=== PATIENT | male | born 1980 | race Two or more races ===

== ENCOUNTER 2020-10-19 14:12 | Outpatient (REF) | payer SELFPAY | END 2020-10-19 14:13 | disposition home or self-care (01) | LOC: HO.LAB 14:12 | PROVIDERS: Visit Provider Internal Medicine | DX: Z20.828 Contact with and (suspected) exposure to other viral communicable diseases (principal) | CPT/HCPCS: C9803; U0003 ==

== ENCOUNTER 2024-11-15 20:34 | Emergency (ER) | payer OTHER, SELFPAY ==
[2024-11-15 20:39] VITALS: BP 151/84; PULSE 98; RESP 16; TEMP 36; O2SAT 95; BMI 40.8
--- NOTE | 2024-11-15 21:17 | ED_ITS ---
HPI - Back Pain/Injury General Chief Complaint: Back Pain/Injury Stated Complaint: back pain/leg tingling Time Seen by Provider: 11/15/24 21:17 Source: patient Mode of arrival: ambulatory Limitations: no limitations History of Present Illness ED Provider: HPI Narrative: Patient has no prior low back problems comes here with pain in the left lower lumbar area radiating to the left leg last 2 weeks no injury no spinal tenderness patient was not noticed numbness in the left leg at the area of the knee no motor weakness Related Data Previous Rx's ?Medication ?Instructions ?Recorded cyclobenzaprine 10 mg tablet 10 mg PO TID PRN muscle spasm #20 11/15/24 tabs oxycodone 5 mg tablet 5 mg PO Q6H PRN pain #30 tabs 11/15/24 Allergies Allergy/AdvReac Type Severity Reaction Status Date / Time No Known Allergies Allergy Verified 11/15/24 20:42 Review of Systems Review of Systems: Yes all other systems are reviewed and are negative [facility] Social History Social History Advance Directives: No Advance Directives Information Provided: Yes Do you have a plan to hurt others: No Plan Physical Exam Vital Signs: Vital Signs: Last Vital Signs Temp 97.9 F 11/15/24 22:02 Pulse 92 11/15/24 22:02 Resp 18 11/15/24 22:02 BP 141/82 H 11/15/24 22:02 Pulse Ox 97 11/15/24 22:02 O2 Del Method Room Air 11/15/24 22:02 BMI result Body Mass Index 40.8 Appearance: Alert. Oriented X3. No acute distress. Neck: Normal inspection. Neck supple. CVS: Normal heart rate and rhythm. Pulses normal. Respiratory: No respiratory distress. Equal air entry bilateral, no wheezing/rales/rhonchi Abdomen: Soft and nontender. Bowel sounds are present, no mass palpable, no CVA tenderness back: No midline left sciatic notch tenderness Pace sign positive for piriformis syndrome Skin: Skin warm and dry. Normal skin color. Normal skin turgor. Extremities: No lower extremity edema. No calf tenderness SLR test negative on the left side Neuro: Oriented X 3. No motor deficit. No sensory deficit. Medications Administered Discontinued Medications Generic Name Dose Route Start Last Admin Trade Name Freq PRN Reason Stop Dose Admin Cyclobenzaprine HCl 10 mg 11/15/24 21:24 11/15/24 21:49 Cyclobenzaprine Hcl 10 Mg Tablet PO 11/15/24 21:25 10 mg ONCE ONE Administration Morphine Sulfate 15 mg 11/15/24 21:24 11/15/24 21:50 Morphine Sulfate Immed Release 15 Mg Tablet PO 11/15/24 21:25 15 mg ONCE ONE Administration Medical Decision Making Medical Decision Making MDM Narrative: Patient clinically with the piriformis syndrome Differential Diagnosis Differential Diagnoses: The differential diagnosis associated with the presentation includes Sciatic your/piriformis syndrome/low back strain Discharge Plan Discharge Clinical Impression: Piriformis syndrome of left side Patient Disposition: Home, Self-Care Instructions: Piriformis Syndrome (ED) Additional Instructions: Take pain medication muscle relaxant as prescribed Rest do piriformis syndrome exercises as advised Follow with PCP or pain clinic if pain continues for further management Prescriptions: New oxycodone 5 mg tablet 5 mg PO Q6H PRN (Reason: pain) Qty: 30 0RF Rx Instructions: Partial Fill upon patient request. cyclobenzaprine 10 mg tablet 10 mg PO TID PRN (Reason: muscle spasm) Qty: 20 0RF Stand Alone Forms: Work/School Release Interventions: ED Discharge Assessment Last Done: 11/15/24 22:02 Discharge Date/Time: 11/15/24 22:02 Print Language: [place]
[2024-11-15] MEDS: Cyclobenzaprine HCl 10 MG TABLET PO (21:49)
[2024-11-15] MEDS: Morphine Sulfate Immed Release 15 MG TABLET PO (21:50)
[2024-11-15 21:57] VITALS: BP 141/82; PULSE 92; RESP 18; TEMP 36.6; O2SAT 97
[2024-11-15 22:02] VITALS: BP 141/82; PULSE 92; RESP 18; TEMP 36.6; O2SAT 97
== END 2024-11-15 22:02 | disposition home or self-care (01) ==
PROVIDERS: Emergency Provider Internal Medicine
DX: G57.02 Lesion of sciatic nerve, left lower limb (principal); M54.50 Low back pain, unspecified; M79.605 Pain in left leg
CPT/HCPCS: 99283; 99284

== ENCOUNTER 2024-11-23 06:56 | Emergency (ER) | payer OTHER, SELFPAY ==
--- NOTE | ~2024-11-23 | XR_ITS ---
EXAMINATION: XR LUMBOSACRAL SPINE CLINICAL INFORMATION: lower back pain COMPARISON: None available. TECHNIQUE: Three views of the lumbosacral spine. FINDINGS: Marginal osteophyte formation and syndesmophyte formation from T11-12 through L1-2. Mild endplate sclerosis throughout the vertebral bodies. No acute cortical disruption. No malalignment. No lytic or blastic lesions. XR/XR lumbar spine 2-3V IMPRESSION: Multilevel thoracolumbar spondylosis. Electronically signed by: Farhad Burrell MD 11/23/2024 08:17 AM [facility]
[2024-11-23 07:12] VITALS: BP 148/91; PULSE 89; RESP 16; TEMP 37.1; O2SAT 98; BMI 39.9
--- NOTE | 2024-11-23 10:32 | ED.BACK ---
HPI - Back Pain/Injury General Chief Complaint: Back Pain/Injury Stated Complaint: Left back and knee pain Time Seen by Provider: 11/23/24 09:54 Source: patient, RN notes reviewed and old records reviewed Mode of arrival: ambulatory History of Present Illness ED Provider: Lisa Wright PA-C [facility] Narrative: 44-year-old male with no significant past medical history presenting to the ED complaining of acute on chronic left-sided low back pain radiating down LLE x few weeks. Denies known injury/trauma or fall. States did bend down in his basement and unclear if that cause symptoms. Reports associated numbness/tingling down left lower extremity. Denies incontinence, retention, hematuria, dysuria, abdominal pain. Patient was evaluated in our ED on 11/15 for similar symptoms, prescribed oxycodone and cyclobenzaprine with some relief. Related Data Previous Rx's ?Medication ?Instructions ?Recorded cyclobenzaprine 10 mg tablet 10 mg PO TID PRN muscle spasm #20 11/15/24 tabs oxycodone 5 mg tablet 5 mg PO Q6H PRN pain #30 tabs 11/15/24 acetaminophen 500 mg tablet 500 mg PO Q6H PRN fever or pain 11/23/24 (Tylenol Extra Strength) #14 tabs cyclobenzaprine 10 mg tablet 10 mg PO TID PRN muscle spasm #14 11/23/24 tabs lidocaine 5 % topical patch 1 patch topical DAILY PRN pain #30 11/23/24 (Lidoderm) ea naproxen 500 mg tablet 500 mg PO BID PRN pain 10 days #20 11/23/24 tabs prednisone 20 mg tablet 40 mg (2 x 20 mg) PO DAILY 5 days 11/23/24 #10 tabs Allergies Allergy/AdvReac Type Severity Reaction Status Date / Time No Known Allergies Allergy Verified 11/23/24 07:14 Review of Systems Review of Systems: Yes all other systems are reviewed and are negative Constitutional: Constitutional: Reports as per [facility] Past Medical History Attestation statement: The following information was validated with the patient. Source: old records reviewed Social History Social History Advance Directives: No Advance Directives Information Provided: Yes Do you have a plan to hurt others: No Plan Physical Exam Vital Signs: Vital Signs: Last Vital Signs Temp 98.7 F 11/23/24 07:12 Pulse 89 11/23/24 07:12 Resp 16 11/23/24 07:12 BP 148/91 H 11/23/24 07:12 Pulse Ox 98 11/23/24 07:12 O2 Del Method Room Air 11/23/24 07:12 BMI result Body Mass Index 39.9 Const: General: cooperative, healthy appearing and no acute distress Orientation/consciousness: patient oriented x3 Limitations: no limitations HEENT: Head: Yes normal to inspection and Yes atraumatic Ears: hearing grossly normal bilaterally General nose exam: Normal external nose present Face and sinus: Yes normal facial exam Eyes: General: appearance normal, both eyes and all related structures EOM: EOMs intact bilaterally Neck: Neck: Yes normal visual inspection and Yes no meningeal signs Resp: Effort & Inspection: normal respiratory effort and no respiratory distress Cardio: Rate: regular rate GI: Inspection: Yes normal to inspection Palpation (GI): Soft to palpation, nontender, no guarding and not rigid : General: Yes no CVA tenderness Back/Spine/Pelvis: Other: No midline cervical/thoracic/lumbar spinous tenderness/step-off or deformity. + mild reproducible left lower lumbar MSK tenderness. No rash/erythema Back: no CVA tenderness Skin: Rashes: no rashes Wounds: no wounds Neuro: Other: Strength intact throughout. No saddle anesthesia. Sensation intact to light touch. Neurovascular intact distally General: patient oriented x3, gait normal (Ambulating with cane), tone normal, moves all extremities, no meningeal signs and no focal motor deficits Cranial nerves: Yes CN's II-XII intact bilaterally Gait exam (Neuro): Normal gait present Motor exam (neuro): 5/5 motor strength present throughout Extrem: General: Yes normal to inspection Course Course Course Narrative: XR lumbar spine 2-3V IMPRESSION: Multilevel thoracolumbar spondylosis. Results discussed with patient including worrisome signs and symptoms and strict return precautions, and when to return to the emergency department. They verbalized understanding and feel safe for discharge at this time. Medical Decision Making Medical Decision Making [facility] Narrative: 44-year-old male with no significant past medical history presenting to the ED complaining of acute on chronic left-sided low back pain radiating down LLE x few weeks. On exam vital signs stable, NAD, nontoxic appearing, physical exam as noted above. No midline spinous tenderness throughout or red flag symptoms. Ambulating with steady gait with cane. Concern for sciatica vs MSK pain/spasming. Low suspicion for fracture, cauda equina/cord compression, or epidural abscess Plan: X-ray ordered in triage, pain control, PCP/spine follow up Please refer to course for remaining clinical decision making, interpretation of labs/imaging results, and discussions with consultants and/or family members. Differential Diagnosis Differential Diagnoses: The differential diagnosis associated with the presentation includes As above Admission/Observation Consideration of admission/observation: Escalation of care including admission/observation considered Lab Data MDM Lab Attestation statement: I reviewed the patient's lab results. Independent Interpretation I performed an independent interpretation of an: Plain X-Ray Radiology Impression Discussion of test interpretation with radiology: I have reviewed the radiologist's reading. External Record Review External record reviewed: Inpatient record, Office record, Outpatient record, Prior outpatient labs, Prior outpatient radiology, Primary care record and Outside ED record Tests considered The following testing was considered but not selected: As above Prescription Management I considered prescription management with: Pain Medication Chronic Conditions Patient?s care impacted by: Other Social Determinants Patient?s care significantly limited by Social Determinants of Health including: Other Social Determinant of Health Discharge Plan Discharge Clinical Impression: Sciatica Patient Disposition: Home, Self-Care Instructions: Sciatica (ED) Additional Instructions: Your pain is likely musculoskeletal Flexeril is a muscle relaxer, take at night as it makes you drowsy, do not drive, drink alcohol, or operate machinery while taking it Naproxen as an anti-inflammatory / pain medication, take with food Lidoderm patches are numbing patches, apply to painful area Preednisone is a steroid, please take as prescribed In addition take Tylenol at home If symptoms persist or worsen, pain becomes unbearable, you developed urinary retention or incontinence, or weakness return to the ED Prescriptions: New cyclobenzaprine 10 mg tablet 10 mg PO TID PRN (Reason: muscle spasm) Qty: 14 0RF prednisone 20 mg tablet 40 mg PO DAILY 5 Days Qty: 10 0RF acetaminophen [Tylenol Extra Strength] 500 mg tablet 500 mg PO Q6H PRN (Reason: fever or pain) Qty: 14 0RF lidocaine [Lidoderm] 5 % adhesive patch,medicated 1 patch topical DAILY MDD remove after 12 hours PRN (Reason: pain) Qty: 30 0RF Rx Instructions: leave on most painful area for up to 12 hrs naproxen 500 mg tablet 500 mg PO BID PRN (Reason: pain) 10 Days Qty: 20 0RF No Action oxycodone 5 mg tablet 5 mg PO Q6H PRN (Reason: pain) Qty: 30 0RF Rx Instructions: Partial Fill upon patient request. cyclobenzaprine 10 mg tablet 10 mg PO TID PRN (Reason: muscle spasm) Qty: 20 0RF Referrals: [facility] [Provider Group] Silvia Naik PA-C [Primary Care Provider] - Print Language: [place]
[2024-11-23] MEDS: Lidocaine 4 % Patch ADH..PATCH 1 PATCH TRANSDERMA (10:54)
[2024-11-23] MEDS: Cyclobenzaprine HCl 10 MG TABLET PO (10:54)
[2024-11-23] MEDS: NaPROXEN 500 MG TABLET PO (10:54)
--- NOTE | 2024-11-23 11:02 | PC.NURSE ---
Pt. changed mind and refused Morphine PO. Morphine wasted with Viola Dinh RN.
[2024-11-23 11:10] VITALS: BP 148/91; PULSE 89; RESP 16; TEMP 37.1; O2SAT 98
--- OUTSIDE RECORDS SUMMARY | 2024-11-23 14:48 | XMS_ITS | Clinical Summary ---
Author Organization [facility] Address [address] [place] [address] Care Team Providers Care Sales Rep Name Role Phone Tavia Baldwin PA-C Primary Care Provider [phone] Source Comments PLEASE NOTE, if this patient is a minor, it may be UNLAWFUL to discuss sensitive information that is contained in these records (such as FAMILY PLANNING, MENTAL HEALTH or SUBSTANCE ABUSE) with the minor patient's parent or other person without the patient's specific authorization.[facility] Allergies No known active allergies Medications FLUOCINONIDE/EM OLLIENT BASE (FLUOCINONIDE-E TOP)Indications :High cholesterol,Pre diabetes Apply topically. Active blood sugar diagnostic (FREESTYLE TEST) stripsIndicatio ns:Type 2 diabetes mellitus without complication, without long-term current use of insulin ([facility]) 1 Strip 2 (two) times daily. 100 Each 3 6 Active lancetsIndicati ons:Type 2 diabetes mellitus without complication, without long-term current use of insulin ([facility]) Lifetime need Test 1 x daily Type 2 dmE11.9 100 Each 3 6 Active blood-glucose meter monitoring kitIndications: Uncontrolled type 2 diabetes mellitus without complication, without long-term current use of insulin as needed for blood glucose monitoring. Freestyle lite Life time need disp 1 no refill 1 Each 0 6 Active metFORMIN (GLUCOPHAGE) 1,000 mg tabletIndicatio ns:Type 2 diabetes mellitus without complication, without long-term current use of insulin ([facility]) 1 tablet orally twice daily 60 Tab 3 7 Active Active Problems Problem Noted Date Diagnosed Date Diabetes type 2, controlled ([facility]) 11/30/2016 Overview (11/30/2016): ord to start metformin 11/30/16 pt never began meds- Ed given encouraged to take Right flank pain 06/30/2016 Overview (06/30/2016): After lifting heavy box at work- tx with robaxon and motrin- [facility] 06/09/16 Xerosis of skin 04/11/2016 Obesity, Class III, BMI 40-49.9 (morbid obesity) ([facility]) 12/17/2015 High cholesterol 12/17/2015 Overview (12/17/2015): Lab Results Component Value Date TRIGLYC 519* 12/16/2015 CHOL 225* 12/16/2015 HDL 39* 12/16/2015 LDL TNP 12/16/2015 LDL 91 12/16/2015 Lab Results Component Value Date LDL TNP 12/16/2015 LDL 91 12/16/2015 Ref to radha Eczema Overview (05/18/2016): Saw brian fernandez 02/13/16 plan: Fluocinonide 0.05% bid no longer than 2 week the 1 week vaseline- repeat prn bilat LE x 1 year. + itch Left more angry than right. No infection with this Resolved Problems Problem Noted Date Diagnosed Date Resolved Date Prediabetes 12/17/2015 11/30/2016 Overview (12/17/2015): Lab Results Component Value Date HGBA1C 6.2 12/16/2015 ref to Goyo garcia Immunizations Name Administration Dates Next Due Hep B, Adult/Adol (ENERGIX/RECOMBIVAX) 7,11/30/2016 INFLUENZA, SEASONAL, INJECTABLE 11/30/2016 TDAP 12/28/2016 Family History Medical History Relation Name Comments Diabetes Mother High Cholesterol Mother Hypertension Mother Relation Name Status Comments Brother Alive Father unknown Alive Mother Alive Sister 1 Alive Sister 2 Alive Sister 3 Alive Sister 4 Alive Social History Tobacco Use Types Packs/Day Years Used Date Smoking Tobacco: Former Alcohol Use Standard Drinks/Week Comments No 0 (1 standard drink = 0.6 oz pur e alcohol) rare use Social Connections Answer Date Recorded Social Connections and Isolation 0 06/21/2019 Financial Resource Strain Answer Date R ecorded Financial Resource Strain 0 2018 Stress Answer Date Recorded Stress 0 06/21/2019 Physical Activity Answer Date Recorded Physical Activity 0 06/21/2019 Food Insecurity Answer Date Recorded Food 0 06/21/2019 Transportation Needs Answer Date Record ed Transportation 0 06/21/2019 Housing Stability Answer Date Recorded Housing 0 06/21/2019 Safety and Environment Answer Date Khalif rded Safety 0 06/21/2019 Utilities Answer Date Recorded Utilities 0 06/21/2019 Employment Answer Date Recorded Employment 0 06/21/2019 Sex and Gender Information Value Date Recorded Sex Assigned at Not on file Legal Sex Male 11:42 AM PDT Gender Identity Not on file Sexual Orientation Not on file 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 Not on file Not on file Not on file Last Filed Vital Signs Vital Sign Reading Time Taken Comments Blood Pressure 130/80 11/30/2016 11:29 AM EST Pulse 88 11/30/2016 11:29 AM EST Temperature 37 ??C (98.6 ??F) 11/30/2016 11:29 AM EST Respiratory Rate 18 11/30/2016 11:29 AM EST Oxygen Saturation - - Inhaled Oxygen Concentration - - Weight 118.4 kg (261 lb) 11/30/2016 11:29 AM EST Height 167.6 cm (5' 6 ) 07/20/2016 10:56 AM EDT Body Mass Index 42.13 07/20/2016 10:56 AM EDT Plan of Treatment Not on file Insurance [place] Care Teams Sales Rep Relationship Specialty Start Date End Date Tavia Baldwin PA-C [address] [place] [address] PCP - General 12/23/18
== END 2024-11-23 11:10 | disposition home or self-care (01) ==
PROVIDERS: Emergency Provider Emergency Medicine
DX: M54.42 Lumbago with sciatica, left side (principal)
CPT/HCPCS: 72100; 99283

== ENCOUNTER → 2024-11-23 07:30 | Outpatient (BNV) | payer OTHER, SELFPAY | PROVIDERS: Visit Provider Radiology Diagnostic Radiology | DX: M47.895 Other spondylosis, thoracolumbar region (principal) | CPT/HCPCS: 72100 ==

== ENCOUNTER 2024-12-18 13:18 | Outpatient (AMB) | payer OTHER, SELFPAY ==
--- NOTE | 2024-12-18 13:32 | A.OFFPC_ITS ---
Vital Signs 3 12/18/24 13:34 Height 5 ft 6.14 in Weight 249 lb 2 oz BMI 40.0 BP 150/86 H Blood Pressure Location Lt brachial Position Sitting Pulse 103 H Pulse Source Pulse Oximeter Temp 97.5 F Temp Source Temporal Artery Scan Pulse Oximetry (%) 95 Oxygen Delivery Method Room Air Intake Visit Reasons: establish care Intake Note: Patient is a new patient here to establish care for HTN, Hx DM, Hx High Cholesterol and Triglyceride, Obesity, Decrease hearing in right ear. Transferring care from [facility]([place]). Medical records have been requested and have received. Foam Rubber Fabricator Required: No Home Service Consultant: Present Accompanied by: Spouse Allergies No Known Allergies Allergy (Verified 12/18/24 13:48) Medication List - Last Reconciled 12/18/24 by Silvia Naik PA-C No Known Home Meds Tobacco use date assessed: 12/18/24 Dental Screening Dental Screen Date: 12/18/24 Did you have a dental visit in the last 12 months?: No Did you have a dental problem in the last 6 months where you did not have access to dental care?: No Was dental information given to patient?: Patient has dentist HPI establish care 2 HPI0 Details 44-year-old male coming to the office fo r the 1st time.? Patient has a history of diabetes mellitus, Xerosis of skin, obesity, hypercholesterolemia.? Patient was last seen at [facility] 2016.? In review of the notes, patient was seen in the ED several times in October 2024 for sciatica related pain. Presenting with initial visit for management of chronic conditions and evaluation of new symptoms. Chronic management lapse in hypercholesterolemia and type 2 diabetes mellitus; last received care in 2016. Reports consistently high blood pressure readings at home, with systolic levels reaching 170 mmHg and diastolic pressures around 100 mmHg. Right ear hearing impairment noted, without current associated infection or pain. 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 1. Little interest or pleasure in doing things: not at all 2. Feeling down, depressed, or hopeless: not at all 3. Trouble falling or staying asleep, or sleeping too much: not at all 4. Feeling tired or having little energy: not at all 5. Poor appetite or overeating: not at all 6. Feeling bad about yourself - or that you are a failure or have let yourself or your family down: not at all 7. Trouble concentrating on things, such as reading the newspaper or watching television: not at all 8. Moving or speaking so slowly that other people could have noticed. Or the opposite - being so fidgety or restless that you have been moving around a lot more than usual: not at all 9. Thoughts that you would be better off or of hurting yourself in some way: not at all Total score: 0 Depression Screening Interpretation: Negative Depression Screening Done: Yes Source: Developed by Drs. Lance Horton, Jumana Manning, Son Quach and colleagues, with an educational shruthi from [employer]. Thrive Questionnaire Date Thrive assessed: 12/18/24 I am a: Patient What is your living situation today?: I have a steady place to live Within the past 12 months, did the food you bought not last and you didn't have the money to get more?: Often true Within the past 12 months, did you worry whether your food would run out before you got money to buy more?: I choose not to answer this question Do you have trouble paying for medicines?: No Do you have trouble getting transportation to medical appointments?: No Do you have trouble paying your heating and electricity bill?: No Do you have trouble taking care of your child, family member or friend?: No Do you have trouble with day-to-day activities such as bathing, preparing meals, shopping, managing finances, etc.?: No Are you currently unemployed and looking for a job?: No Are you interested in more education?: I choose not to answer this question Please select the resources that you would like help with: None Currently or been in a relationship where the following occur: I choose not to answer THRIVE Score: 1 AUDIT C Alcohol Use Questionnaire (AUDIT-C) 1. How often do you have a drink containing alcohol?: Never Total Score: 0 VIRGEN-7 AMB Questionnaire VIRGEN-7 Date VIRGEN - 7 assessed: 12/18/24 Feeling nervous, anxious, or on edge: 0 = Not at all Not being able to stop or control worryin = Not at all Worrying too much about different things: 0 = Not at all Trouble relaxin = Not at all Being so restless that it is hard to sit still: 0 = Not at all Becoming easily annoyed or irritable: 0 = Not at all Feeling afraid as if something awful might happen: 0 = Not at all Total VIRGEN-7 score (0-4 normal; 5-9 mild; 10-14 moderate; 15-21 severe): 0 Source: Developed by Drs. Lance Horton, Jumana Manning, Son Quach and colleagues, with an educational shruthi from [employer]. Review of Systems Const Denies body aches, Denies chills, Denies fever(s), Denies headache(s) and Denies poor appetite Eyes Reports no additional complaints ENT Denies dysphagia, Denies dizziness, Denies headache(s) and Denies odynophagia Card Denies chest pain, Denies syncope, Denies lightheadedness and Denies dyspnea Resp Denies cough and Denies dyspnea GI Denies abdominal pain, Denies constipation, Denies dysphagia, Denies diarrhea, Denies nausea, Denies odynophagia and Denies vomiting Reports no additional complaints Musc Reports no additional complaints and Denies abnormal gait Skin/Breast Reports system reviewed and no additional complaints, except as documented Neuro Denies abnormal gait, Denies dizziness, Denies syncope and Denies headache(s) Psych Reports no additional complaints Physical exam (Primary Care) Tobacco/Smoking Status: Tobacco use Status Patient Tobacco Use Status Never used Tobacco 12/18/24 13:33 Depression Screening Interpretation: Negative Currently or been in a relationship where the following occur: I choose not to answer Const General: cooperative, healthy appearing, comfortable and no acute distress Orientation/consciousness: patient oriented x3 HENMA Head: Yes normocephalic Ears: hearing grossly normal bilaterally, TM's normal bilaterally and EAC's normal General nose exam: Normal external nose present Eyes General: appearance normal, both eyes and all related structures Conjunctivae: conjunctivae normal Neck Neck: Yes full ROM and Yes no lymphadenopathy Resp Effort & Inspection: normal respiratory effort Auscultation: clear to auscultation bilaterally, no crackles, no rales, no rhonchi and no wheezes Cardio Rate: regular rate Rhythm: regular rhythm Skin General skin exam: no rashes or lesions noted Full body images: 2 1. non tender skin tag 2. dry area of skin Neuro General: patient oriented x3 Gait exam (Neuro): Normal gait present Extrem General: Yes normal to inspection, Yes full ROM and No edema Psych Affect: normal affect Attitude: cooperative Insight: Good insight present (Psych) Judgement: Good judgement present (Psych) Coding Level of Care Code New Pt Level 4 (82098) Diagnoses Diabetes mellitus E11.9 Hypercholesterolemia E78.00 Obesity E66.9 Hypertension I10 Skin tag L91.8 Dermatitis L30.9 Decreased hearing of right ear H91.91 Assessment & Plan Assessment & Plan (1) Diabetes mellitus: Code(s): E11.9 - Type 2 diabetes mellitus without complications Category: Medical Plan: Decrease the amount of carbohydrates such as pasta, bread, rice, and potatoes and limit the amount of sweets. Although fruits are generally healthy they should be eaten in moderation as they are still high in sugar. Hemoglobin A1c goal of less than 7%. Ordered for repeat A1c with the additional blood work. (2) Hypercholesterolemia: Code(s): E78.00 - Pure hypercholesterolemia, unspecified Category: Medical Plan: Avoid foods that are high in cholesterol such as red meat, fried foods, eggs and baked goods. Triglyceride goal of less than 150 and LDL goal of less than 100. Ordered for blood work (3) Obesity: Code(s): E66.9 - Obesity, unspecified Category: Medical Plan: Healthy diet and regular exercise is encouraged. (4) Hypertension: Code(s): I10 - Essential (primary) hypertension Category: Medical Plan: Treatment initiated with amlodipine 5 mg daily. Follow-up in one month for blood pressure evaluation. Avoid salt intake and encourage healthy diet and regular exercise. Continue to monitor blood pressures at home log to next appointment (5) Skin tag: Comment: left upper back Code(s): L91.8 - Other hypertrophic disorders of the skin Category: Medical Plan: Option for dermatology referral offered for excision. (6) Dermatitis: Code(s): L30.9 - Dermatitis, unspecified Category: Medical Plan: Use of Aquaphor and topical steroid recommended for skin management. (7) Decreased hearing of right ear: Code(s): H91.91 - Unspecified hearing loss, right ear Category: Medical Plan: Suggested antihistamine for suspected sinus-related pressure. Further audiological evaluation considered if symptoms persist. Patient has a regular hearing exams with his employer which has been normal Plan This note was constructed using voice recognition software. While every effort has been made to ensure accuracy and cruise counselor, still areas may have been included sometimes these areas may affect the content or meeting of the given symptoms. Total time spent caring for the patient today was 30 minutes. This includes time spent before the visit reviewing the chart, time spent during the visit, and time spent after the visit and documentation. Orders: Orders 2 Comprehensive Met. Panel Today Z00.00 - Encounter for general adult medical examination without abnormal findings PSA, Ultra Sensitive Today Z00.00 - Encounter for general adult medical examination without abnormal findings TSH reflex Free T4 Today Z00.00 - Encounter for general adult medical examination without abnormal findings Vitamin B12 and Folate Today Z00.00 - Encounter for general adult medical examination without abnormal findings Complete Blood Count Auto Diff Today Z00.00 - Encounter for general adult medical examination without abnormal findings Lipid Panel Today E78.00 - Pure hypercholesterolemia, unspecified Vitamin D 25-OH Total Today Z00.00 - Encounter for general adult medical examination without abnormal findings UA CC w/rflx Micro + Cult Today R35.89 - Other polyuria Microalbumin, Random (w Creat) Today E11.9 - Type 2 diabetes mellitus without complications Hemoglobin A1c Today E11.65 - Type 2 diabetes mellitus with hyperglycemia, E11.9 - Type 2 diabetes mellitus without complications Referrals 2 Cologuard Test Z12.11 - Encounter for screening for malignant neoplasm of colon Dermatology Referral L91.8 - Other hypertrophic disorders of the skin Medications: New 2 amlodipine 5 mg PO DAILY 60 tabs 1RF cetirizine (All Day Allergy (cetirizine)) 10 mg PO DAILY 90 tabs 0RF hydrocortisone 1% 1 appl topical TID PRN 453.6 grams 0RF skin irritation fluticasone propionate 50 mcg/actuation (Flonase Allergy Relief) administer into each nostril 1 spray intranasal DAILY 16 grams 0RF Discontinued 2 oxycodone Partial Fill upon patient request. Discontinued Reason: Patient Completed Course 5 mg PO Q6H PRN 30 tabs 0RF pain acetaminophen (Tylenol Extra Strength) Discontinued Reason: Patient Completed Course 500 mg PO Q6H PRN 14 tabs 0RF fever or pain lidocaine 5% (Lidoderm) leave on most painful area for up to 12 hrs Discontinued Reason: Patient Completed Course 1 patch topical DAILY PRN 30 ea 0RF pain MDD remove after 12 hours naproxen Discontinued Reason: Patient Completed Course 500 mg PO BID 10 days PRN 20 tabs 0RF pain cyclobenzaprine Discontinued Reason: Patient Completed Course 10 mg PO TID PRN 20 tabs 0RF muscle spasm cyclobenzaprine Discontinued Reason: Patient Completed Course 10 mg PO TID PRN 14 tabs 0RF muscle spasm prednisone Discontinued Reason: Patient Completed Course 40 mg (2 x 20 mg) PO DAILY 5 days 10 tabs 0RF
[2024-12-18 13:34] VITALS: BP 150/86; PULSE 103; TEMP 36.4; O2SAT 95; BMI 40.0
--- OUTSIDE RECORDS SUMMARY | 2024-12-18 13:45 | XMS_ITS | Clinical Summary ---
Author Organization [facility] Address [address] [place] [address] Care Team Providers Care Erp Manager Name Role Phone Taiva Baldwin PA-C Primary Care Provider [phone] Source Comments PLEASE NOTE, if this patient [...] complication, without long-term current use of insulin ([facility]) 1 Strip 2 (two) times daily. 100 Each 3 6 Active lancetsIndicati ons:Type 2 diabetes mellitus without complication, without long-term current use of insulin ([facility]) Lifetime need Test 1 x daily Type [...] complication, without long-term current use of insulin ([facility]) 1 tablet orally twice daily 60 Tab 3 7 Active Active Problems Problem Noted Date Diagnosed Date Diabetes type 2, controlled ([facility]) 11/30/2016 Overview (11/30/2016): ord to start metformin 11/30/16 pt never began meds- Ed given encouraged to take Right flank pain 06/30/2016 Overview (06/30/2016): After lifting heavy box at work- tx with robaxon and motrin- [facility] 06/09/16 Xerosis of skin 04/11/2016 Obesity, Class III, BMI 40-49.9 (morbid obesity) ([facility]) 12/17/2015 High cholesterol 12/17/2015 Overview (12/17/2015): Lab [...] 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
== END 2024-12-18 14:08 | disposition home or self-care (01) ==
PROVIDERS: PCP Internal Medicine
DX: E11.620 Type 2 diabetes mellitus with diabetic dermatitis (principal); E78.00 Pure hypercholesterolemia, unspecified; Z68.41 Body mass index [BMI] 40.0-44.9, adult; E66.9 Obesity, unspecified; I10 Essential (primary) hypertension; L91.8 Other hypertrophic disorders of the skin; L30.9 Dermatitis, unspecified; H91.91 Unspecified hearing loss, right ear

== ENCOUNTER → 2024-12-18 13:18 | Outpatient (BNVA) | payer OTHER, SELFPAY | PROVIDERS: PCP Internal Medicine ==

== ENCOUNTER 2025-01-02 09:54 | Outpatient (REF) | payer OTHER, SELFPAY ==
[2025-01-02 10:54] LABS: MANUAL DIFF FLAG NO
[2025-01-02 11:04] LABS: Basophils Percent Auto 0.5 % (0-2); Eosinophils Absolute Auto 0.2 X10*3/uL (0.0-0.4); Eosinophils Percent Auto 2.3 % (0-4); Hematocrit 49.2 % (42.0-52.0); Hemoglobin 16.3 g/dl (14.0-18.0); Imm Gran Abs Auto 0.02 X10*3/uL (0.00-0.03); Imm Gran Pct Auto 0.3 % (0.0-0.4); Lymphocytes Absolute Auto 2.3 X10*3/uL (1.2-4.9); Lymphocytes Percent Auto 28.7 % (20-40); Mean Corpuscular HGB Conc 33.1 g/dl (31.0-36.0); Mean Corpuscular Hemoglobin 27.1 pg (27.0-33.0); Mean Corpuscular Volume 81.7 fL (80.0-98.0); Mean Platelet Volume 11.7 fL (9.4-12.4); Monocytes Absolute Auto 0.6 X10*3/uL (0.1-1.2); Monocytes Percent Auto 7.4 % (2-11); Neutrophils Absolute Auto 4.8 x10*3/uL (2.0-8.3); Neutrophils Percent Auto 60.8 % (45-73); Platelet Count 172 X10*3/uL (160-400); Red Blood Count 6.02 X10*6/uL (4.60-5.80); Red Cell Distribution Width 12.6 % (11.0-16.0); White Blood Count 7.8 X10*3/uL (4.8-10.8)
[2025-01-02 11:20] LABS: Estimated Average Glucose 134 mg/dL; Hemoglobin A1c % 6.3 % (<6.0)
[2025-01-02 12:17] LABS: Alanine Aminotransferase 28 U/L (0-40); Albumin Level 4.5 g/dL (3.5-5.0); Alkaline Phosphatase 82 U/L (39-117); Anion Gap 13 (12-20); Aspartate Amino Transferase 26 U/L (5-37); Bilirubin Total 0.8 mg/dL (0.0-1.0); Blood Urea Nitrogen 15 mg/dL (9-16); Calcium 9.6 mg/dL (8.4-10.2); Carbon Dioxide 24 mmol/L (22-29); Chloride 106 mmol/L (96-108); Cholesterol 268 mg/dL (<200); Estimated Glomerular Filt Rate > 60; Glucose Random 141 mg/dL (60-115); HDL Cholesterol 45 mg/dL (>40); LDL Cholesterol Calculated 186 mg/dL (<100); Potassium 3.4 mmol/L (3.3-5.1); Sodium 140 mmol/L (135-145); Total Protein 8.6 g/dL (6.5-8.0); Triglycerides 189 mg/dL (<150)
[2025-01-02 12:24] LABS: TSH reflex Free T4 0.83 uIU/mL (0.32-4.0); Vitamin D 25-OH Total 36.8 ng/mL (>30)
[2025-01-02 12:36] LABS: Folate 15.6 ng/mL (> or = 4.0); Vitamin B12 660 pg/mL (200-900)
[2025-01-06 21:38] LABS: PSA, Ultra Sensitive 0.64 ng/mL
== END 2025-01-02 09:55 | disposition home or self-care (01) ==
LOC: HO.LAB 09:54
DX: Z00.00 Encounter for general adult medical examination without abnormal findings (principal); E78.00 Pure hypercholesterolemia, unspecified; E11.65 Type 2 diabetes mellitus with hyperglycemia; Z12.5 Encounter for screening for malignant neoplasm of prostate
CPT/HCPCS: 36415; 80053; 80061; 82306; 82607; 82746; 83036; 84153; 84443; 85025

== ENCOUNTER 2025-01-04 14:38 | Outpatient (REF) | payer OTHER, SELFPAY ==
[2025-01-04 14:48] LABS: Appearance Urine Clear; Color Urine Yellow; Glucose Urine UA Negative (Negative); Leukocyte Esterase Urine Negative (Negative); Nitrite Urine Negative (Negative); PH 5.5 (5.0-9.0); Urine Blood Negative (Negative); Urine Ketones Negative (Negative); Urine Protein Negative (Neg-Trace)
[2025-01-04 15:11] LABS: Creatinine Urine 194.71 mg/dL; Microalbum/Creatinine Ratio Ur 7.7 ug/mg cr (<30)
--- OUTSIDE RECORDS SUMMARY | 2025-01-04 16:46 | XMS_ITS | Clinical Summary ---
Author Organization [facility] Address [address] [place] [address] Care Team Providers Care Ultra Sound Technician Name Role Phone Tavia Baldwin PA-C Primary Care Provider [phone] Source Comments PLEASE NOTE, if this patient [...] complication, without long-term current use of insulin ([facility]) 1 Strip 2 (two) times daily. 100 Each 3 6 Active lancetsIndicati ons:Type 2 diabetes mellitus without complication, without long-term current use of insulin ([facility]) Lifetime need Test 1 x daily Type [...] complication, without long-term current use of insulin ([facility]) 1 tablet orally twice daily 60 Tab 3 7 Active Active Problems Problem Noted Date Diagnosed Date Diabetes type 2, controlled ([facility]) 11/30/2016 Overview (11/30/2016): ord to start metformin 11/30/16 pt never began meds- Ed given encouraged to take Right flank pain 06/30/2016 Overview (06/30/2016): After lifting heavy box at work- tx with robaxon and motrin- [facility] 06/09/16 Xerosis of skin 04/11/2016 Obesity, Class III, BMI 40-49.9 (morbid obesity) ([facility]) 12/17/2015 High cholesterol 12/17/2015 Overview (12/17/2015): [...] 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
== END 2025-01-04 14:39 | disposition home or self-care (01) ==
LOC: HO.LNP 14:38
DX: E78.00 Pure hypercholesterolemia, unspecified (principal); E11.9 Type 2 diabetes mellitus without complications; R35.89 Other polyuria
CPT/HCPCS: 81003; 82043; 82570

== ENCOUNTER 2025-01-15 15:24 | Outpatient (AMB) | payer OTHER, SELFPAY ==
--- NOTE | 2025-01-15 15:28 | MHC.PC.OV ---
Vital Signs 01/15/25 15:29 Height 5 ft 6 in Weight 251 lb 2 oz BMI 40.5 BP 152/70 H Blood Pressure Location Lt brachial Position Sitting Pulse 110 H Pulse Source Pulse Oximeter Temp 98.2 F Temp Source Temporal Artery Scan Pulse Oximetry (%) 95 Oxygen Delivery Method Room Air Intake Visit Reasons: f/u HTN Intake Note: Patient is here to follow up on HTN. Emergency Communications Dispatcher Required: No Machine Operator Helper: Present Accompanied by: Spouse Allergies No Known Allergies Allergy (Verified 01/15/25 15:32) Medication List - Last Reconciled 01/15/25 by Silvia Naik PA-C amlodipine 5 mg PO DAILY cetirizine (All Day Allergy (cetirizine)) 10 mg PO DAILY fluticasone propionate 50 mcg/actuation (Flonase Allergy Relief) 1 spray intranasal DAILY hydrocortisone 1% 1 appl topical TID PRN Tobacco use date assessed: 01/15/25 Dental Screening Dental Screen Date: 12/18/24 HPI f/u HTN HPI Details 44-year-old male with past medical history of hypertension, obesity, hypercholesterolemia and diabetes mellitus last seen 11/2024 coming in for follow up. Presenting for a follow-up of hypertension and hyperlipidemia management. Hypertension persists despite current treatment with amlodipine. The patient associates nervousness during medical visits with elevated readings. Blood pressure and heart rate usually higher during doctor visits, with hospital records showing previous elevated heart rates in the 90s. Itchiness due to chronic dermatitis; non-painful but persistent. 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 Cognitive needs: No Hearing needs: No Vision needs: Yes (Glasses) Questionnaire Thrive Questionnaire Date Thrive assessed: 12/18/24 I am a: Patient What is your living situation today?: I have a steady place to live Within the past 12 months, did the food you bought not last and you didn't have the money to get more?: Often true Within the past 12 months, did you worry whether your food would run out before you got money to buy more?: I choose not to answer this question Do you have trouble paying for medicines?: No Do you have trouble getting transportation to medical appointments?: No Do you have trouble paying your heating and electricity bill?: No Do you have trouble taking care of your child, family member or friend?: No Do you have trouble with day-to-day activities such as bathing, preparing meals, shopping, managing finances, etc.?: No Are you currently unemployed and looking for a job?: No Are you interested in more education?: I choose not to answer this question Please select the resources that you would like help with: None Currently or been in a relationship where the following occur: I choose not to answer THRIVE Score: 1 VIRGEN-7 AMB Questionnaire VIRGEN-7 Date VIRGEN - 7 assessed: 12/18/24 Source: Developed by Drs. Lance Horton, Jumana Manning, Son Quach and colleagues, with an educational shruthi from [employer]. Review of Systems Const Denies body aches, Denies chills, Denies fever(s), Denies headache(s) and Denies poor appetite Eyes Reports no additional complaints ENT Denies dysphagia, Denies dizziness, Denies headache(s) and Denies odynophagia Card Denies chest pain, Denies syncope, Denies edema, Denies irregular heart rhythm, Denies lightheadedness and Denies dyspnea Resp Denies cough and Denies dyspnea GI Denies abdominal pain, Denies constipation, Denies dysphagia, Denies diarrhea, Denies nausea, Denies odynophagia and Denies vomiting Reports no additional complaints Musc Reports no additional complaints and Denies abnormal gait Skin/Breast Reports system reviewed and no additional complaints, except as documented Neuro Denies abnormal gait, Denies dizziness, Denies syncope and Denies headache(s) Psych Reports no additional complaints Physical exam (Primary Care) Vital Signs: Last Vital Signs Temp 98.2 F 01/15/25 15:29 Oxygen Delivery Method Room Air 01/15/25 15:29 BMI result Body Mass Index 40.5 Tobacco/Smoking Status: Tobacco use Status Tobacco use date assessed 12/18/24 12/18/24 13:34 Patient Tobacco Use Status Never used Tobacco 12/18/24 13:34 e-Cigarette/Vaping Use Never Used 12/18/24 13:34 Thrive Assessment: Date of Thrive Assessment Date Thrive assessed 12/18/24 12/18/24 13:34 Currently or been in a relationship where the following occur: I choose not to answer Const General: cooperative, healthy appearing, comfortable and no acute distress Orientation/consciousness: patient oriented x3 HENMT Head: Yes normocephalic Ears: hearing grossly normal bilaterally General nose exam: Normal external nose present Eyes General: appearance normal, both eyes and all related structures Conjunctivae: conjunctivae normal Neck Neck: Yes full ROM and Yes no lymphadenopathy Resp Effort & Inspection: normal respiratory effort Auscultation: clear to auscultation bilaterally, no crackles, no rales, no rhonchi and no wheezes Cardio Rate: regular rate Rhythm: regular rhythm Skin General skin exam: no rashes or lesions noted Neuro General: patient oriented x3 Gait exam (Neuro): Normal gait present Extrem General: Yes normal to inspection, Yes full ROM and No edema Psych Affect: normal affect Attitude: cooperative Insight: Good insight present (Psych) Judgement: Good judgement present (Psych) Coding Level of Care Code Est Pt Level 4 (48498) Diagnoses Hypercholesterolemia E78.00 Diabetes mellitus E11.9 Obesity E66.9 Hypertension I10 Assessment & Plan Assessment & Plan (1) Hypercholesterolemia: Code(s): E78.00 - Pure hypercholesterolemia, unspecified Category: Medical Plan: Avoid foods that are high in cholesterol such as red meat, fried foods, eggs and baked goods. Triglyceride goal of less than 150 and LDL goal of less than 100. Last LDL 186. Patient declining statin at this time would like to try dietary and lifestyle modification plan to repeat labs in 3 months and discussed with patient if cholesterol remains elevated would recommend statin. Patient is aware risks of persistently elevated cholesterol (2) Diabetes mellitus: Code(s): E11.9 - Type 2 diabetes mellitus without complications Category: Medical Plan: Decrease the amount of carbohydrates such as pasta, bread, rice, and potatoes and limit the amount of sweets. Although fruits are generally healthy they should be eaten in moderation as they are still high in sugar. Hemoglobin A1c goal of less than 7%. Last A1c 6.3% not currently on medication. (3) Obesity: Code(s): E66.9 - Obesity, unspecified Category: Medical Plan: Healthy diet and regular exercise is encouraged. (4) Hypertension: Code(s): I10 - Essential (primary) hypertension Category: Medical Plan: Continue on current blood pressure medication. Avoid salt intake and encourage healthy diet and regular exercise. Plan This note was constructed using voice recognition software. While every effort has been made to ensure accuracy and digital solutions architect, still areas may have been included sometimes these areas may affect the content or meeting of the given symptoms. Total time spent caring for the patient today was 20 minutes. This includes time spent before the visit reviewing the chart, time spent during the visit, and time spent after the visit and documentation. Patient was informed and verbally consented to the use of an ambient scribe for clinic note documentation during this visit. Orders: Orders Lipid Panel 3 Months E78.00 - Pure hypercholesterolemia, unspecified Medications: New metoprolol succinate ER 25 mg PO DAILY 30 tabs 0RF Refilled amlodipine 5 mg PO DAILY 60 tabs 1RF
[2025-01-15 15:29] VITALS: BP 152/70; PULSE 110; TEMP 36.8; O2SAT 95; BMI 40.5
== END 2025-01-15 15:54 | disposition home or self-care (01) ==
LOC: HO.HMCH 15:25
DX: E78.00 Pure hypercholesterolemia, unspecified (principal); E11.9 Type 2 diabetes mellitus without complications; Z68.41 Body mass index [BMI] 40.0-44.9, adult; E66.9 Obesity, unspecified; I10 Essential (primary) hypertension

== ENCOUNTER 2025-02-26 15:23 | Outpatient (AMB) | payer OTHER, SELFPAY ==
--- OUTSIDE RECORDS SUMMARY | 2025-02-26 15:26 | XMS_ITS | Clinical Summary ---
Author Organization [facility] Address [address] [place] [address] Care Team Providers Care Ruby On Rails Developer Name Role Phone Tavia Baldwin PA-C Primary Care Provider [phone] Source Comments PLEASE NOTE, if this patient [...] complication, without long-term current use of insulin ([facility]) 1 Strip 2 (two) times daily. 100 Each 3 6 Active lancetsIndicati ons:Type 2 diabetes mellitus without complication, without long-term current use of insulin ([facility]) Lifetime need Test 1 x [...] complication, without long-term current use of insulin ([facility]) 1 tablet orally twice daily 60 Tab 3 7 Active Active Problems Problem Noted Date Diagnosed Date Diabetes type 2, controlled ([facility]) 11/30/2016 Overview (11/30/2016): ord to start metformin 11/30/16 pt never began meds- Ed given encouraged to take Right flank pain 06/30/2016 Overview (06/30/2016): After lifting heavy box at work- tx with robaxon and motrin- [facility] ER 06/09/16 Xerosis of skin 04/11/2016 Obesity, Class III, BMI 40-49.9 (morbid obesity) ([facility]) 12/17/2015 High cholesterol 12/17/2015 Overview (12/17/2015): [...] 6.2 12/16/2015 ref to Goyo garcia Immunizations Immunization Administration Dates Next Due Hep B, Adult/Adol [...] 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
--- NOTE | 2025-02-26 15:28 | A.OFFPC_ITS ---
Vital Signs 02/26/25 15:35 02/26/25 15:53 Height 5 ft 6 in Weight 253 lb 4 oz BMI 40.9 BP 166/80 H 144/78 H Blood Pressure Location Lt brachial Lt brachial Position Sitting Sitting Pulse 104 H Pulse Source Pulse Oximeter Temp 98.6 F Temp Source Temporal Artery Scan Pulse Oximetry (%) 96 Oxygen Delivery Method Room Air Intake Visit Reasons: f/u cholesterol Checker Cashier Required: No Accompanied by: Spouse Allergies No Known Allergies Allergy (Verified 02/26/25 15:41) Medication List - Last Reconciled 02/26/25 by Silvia Naik PA-C amlodipine 5 mg PO DAILY cetirizine (All Day Allergy (cetirizine)) 10 mg PO DAILY fluticasone propionate 50 mcg/actuation 1 spray intranasal DAILY hydrocortisone 1% 1 appl topical TID PRN metoprolol succinate ER 25 mg PO DAILY Tobacco use date assessed: 01/15/25 Dental Screening Dental Screen Date: 12/18/24 HPI f/u cholesterol HPI Details 44-year-old male with past medical histo ry of hypertension, obesity, hypercholesterolemia and diabetes mellitus last seen 11/2024 coming in for follow up.? Patient monitors his blood pressure at home which have been in the 155-160 systolic region and 80-85 diastolic region. Denies any symptoms associated with hypertension. Has no acute concerns today. 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 1. Little interest or pleasure in doing things: not at all 2. Feeling down, depressed, or hopeless: not at all 3. Trouble falling or staying asleep, or sleeping too much: not at all 4. Feeling tired or having little energy: not at all 5. Poor appetite or overeating: not at all 6. Feeling bad about yourself - or that you are a failure or have let yourself or your family down: not at all 7. Trouble concentrating on things, such as reading the newspaper or watching television: not at all 8. Moving or speaking so slowly that other people could have noticed. Or the opposite - being so fidgety or restless that you have been moving around a lot more than usual: not at all 9. Thoughts that you would be better off or of hurting yourself in some way: not at all Total score: 0 Depression Screening Interpretation: Negative Depression Screening Done: Yes 19912 - PHQ-9 Billing: Yes Source: Developed by Drs. Lance Horton, Jumana Manning, Son Quach and colleagues, with an educational shruthi from [employer]. Thrive Questionnaire Date Thrive assessed: 02/26/25 I am a: Patient What is your living situation today?: I have a steady place to live Within the past 12 months, did the food you bought not last and you didn't have the money to get more?: Often true Within the past 12 months, did you worry whether your food would run out before you got money to buy more?: I choose not to answer this question Do you have trouble paying for medicines?: No Do you have trouble getting transportation to medical appointments?: No Do you have trouble paying your heating and electricity bill?: No Do you have trouble taking care of your child, family member or friend?: No Do you have trouble with day-to-day activities such as bathing, preparing meals, shopping, managing finances, etc.?: No Are you currently unemployed and looking for a job?: No Are you interested in more education?: I choose not to answer this question Please select the resources that you would like help with: None Currently or been in a relationship where the following occur: I choose not to answer THRIVE Score: 1 VIRGEN-7 AMB Questionnaire VIRGEN-7 Date VIRGEN - 7 assessed: 12/18/24 Source: Developed by Drs. Lance Horton, Jumana Manning, Son uQach and colleagues, with an educational shruthi from [employer]. Review of Systems Const Denies body aches, Denies chills, Denies fever(s), Denies headache(s) and Denies poor appetite Eyes Reports no additional complaints ENT Denies dysphagia, Denies dizziness, Denies headache(s) and Denies odynophagia Card Denies chest pain, Denies syncope, Denies edema, Denies irregular heart rhythm, Denies lightheadedness and Denies dyspnea Resp Denies cough and Denies dyspnea GI Denies abdominal pain, Denies constipation, Denies dysphagia, Denies diarrhea, Denies nausea, Denies odynophagia and Denies vomiting Reports no additional complaints Musc Reports no additional complaints and Denies abnormal gait Skin/Breast Reports system reviewed and no additional complaints, except as documented Neuro Denies abnormal gait, Denies dizziness, Denies syncope and Denies headache(s) Psych Reports no additional complaints Physical exam (Primary Care) Vital Signs: Last Vital Signs Temp 98.6 F 02/26/25 15:35 Pulse 104 H 02/26/25 15:35 BP 166/80 H 02/26/25 15:35 Pulse Ox 96 02/26/25 15:35 Oxygen Delivery Method Room Air 02/26/25 15:35 BMI result Body Mass Index 40.9 Tobacco/Smoking Status: Tobacco use Status Tobacco use date assessed 01/15/25 02/26/25 15:29 Patient Tobacco Use Status Never used Tobacco 02/26/25 15:29 e-Cigarette/Vaping Use Never Used 02/26/25 15:29 PHQ-9: PHQ-9 Score PHQ-9: Total score 0 02/26/25 15:29 Depression Screening Interpretation: Negative Thrive Assessment: Date of Thrive Assessment Date Thrive assessed 02/26/25 02/26/25 15:29 Currently or been in a relationship where the following occur: I choose not to answer Const General: cooperative, healthy appearing, comfortable and no acute distress Orientation/consciousness: patient oriented x3 HENMT Head: Yes normocephalic Ears: hearing grossly normal bilaterally General nose exam: Normal external nose present Eyes General: appearance normal, both eyes and all related structures Conjunctivae: conjunctivae normal Neck Neck: Yes full ROM and Yes no lymphadenopathy Resp Effort & Inspection: normal respiratory effort Auscultation: clear to auscultation bilaterally, no crackles, no rales, no rhonchi and no wheezes Cardio Rate: regular rate Rhythm: regular rhythm Skin General skin exam: no rashes or lesions noted Neuro General: patient oriented x3 Gait exam (Neuro): Normal gait present Extrem General: Yes normal to inspection, Yes full ROM and No edema Psych Affect: normal affect Attitude: cooperative Insight: Good insight present (Psych) Judgement: Good judgement present (Psych) Coding Level of Care Code Est Pt Level 4 (92117) Diagnoses Hypertension I10 Obesity E66.9 Hypercholesterolemia E78.00 Diabetes mellitus E11.9 Additional Codes PHQ-9 - 56016 - PHQ-9 Billing: Yes ([id number]) Assessment & Plan Assessment & Plan (1) Hypertension: Code(s): I10 - Essential (primary) hypertension Category: Medical Plan: Plan to increase metoprolol to 50 mg daily for better management of blood pressure. Advised patient to continue taking blood pressures at home and reach out to the office if values rise above 140/90 or if he begins to have symptoms of hypotension. Avoid salt intake and encourage healthy diet and regular exercise. (2) Obesity: Code(s): E66.9 - Obesity, unspecified Category: Medical Plan: Healthy diet and regular exercise is encouraged. (3) Hypercholesterolemia: Code(s): E78.00 - Pure hypercholesterolemia, unspecified Category: Medical Plan: Avoid foods that are high in cholesterol such as red meat, fried foods, eggs and baked goods. Triglyceride goal of less than 150 and LDL goal of less than 70. Plan to start on atorvastatin 10 mg due to elevated cholesterol and comorbidities. Patient provided with cholesterol resources today. (4) Diabetes mellitus: Code(s): E11.9 - Type 2 diabetes mellitus without complications Category: Medical Plan: Decrease the amount of carbohydrates such as pasta, bread, rice, and potatoes and limit the amount of sweets. Although fruits are generally healthy they should be eaten in moderation as they are still high in sugar. Hemoglobin A1c goal of less than 7%. A1c 6.3% today medication not indicated plan to continue to work on dietary and lifestyle modification. Plan This note was constructed using voice recognition software. While every effort has been made to ensure accuracy and personal support worker, still areas may have been included sometimes these areas may affect the content or meeting of the given symptoms. Total time spent caring for the patient today was 20 minutes. This includes time spent before the visit reviewing the chart, time spent during the visit, and time spent after the visit and documentation. Medications: New atorvastatin 10 mg PO DAILY 90 tabs 1RF metoprolol succinate ER 50 mg PO DAILY 30 tabs 2RF Refilled cetirizine (All Day Allergy (cetirizine)) 10 mg PO DAILY 90 tabs 0RF Discontinued metoprolol succinate ER Discontinued Reason: Patient no longer taking 25 mg PO DAILY 90 tabs 1RF
[2025-02-26 15:35] VITALS: BP 166/80; PULSE 104; TEMP 37; O2SAT 96; BMI 40.9
[2025-02-26 15:53] VITALS: BP 144/78
== END 2025-02-26 16:02 | disposition home or self-care (01) ==
LOC: HO.HMCH 15:24
DX: E11.9 Type 2 diabetes mellitus without complications (principal); E66.9 Obesity, unspecified; Z68.41 Body mass index [BMI] 40.0-44.9, adult; I10 Essential (primary) hypertension; E78.00 Pure hypercholesterolemia, unspecified

== ENCOUNTER → 2025-02-26 15:23 | Outpatient (BNVA) | payer OTHER, SELFPAY | DX: I10 Essential (primary) hypertension (principal); E66.9 Obesity, unspecified; Z68.41 Body mass index [BMI] 40.0-44.9, adult; E78.00 Pure hypercholesterolemia, unspecified; E11.9 Type 2 diabetes mellitus without complications; Z79.899 Other long term (current) drug therapy | CPT/HCPCS: 96127 ==

== ENCOUNTER 2025-06-21 14:19 | Outpatient (AMB) | payer OTHER, SELFPAY ==
[2025-06-21 14:29] VITALS: BP 160/82; PULSE 90; O2SAT 96; BMI 41.6
--- NOTE | 2025-06-21 14:29 | A.OFFPC_ITS ---
Vital Signs 06/21/25 14:29 06/21/25 14:58 Height 5 ft 6 in Weight 257 lb 8 oz BMI 41.6 BP 160/82 H 140/80 H Blood Pressure Location Lt brachial Lt brachial Position Sitting Sitting Pulse 90 77 Pulse Source Pulse Oximeter Pulse Oximetry (%) 96 Intake Visit Reasons: Reschedule FU BP Weight Clerk Required: No Accompanied by: Spouse Allergies No Known Allergies Allergy (Verified 06/21/25 14:53) Medication List - Last Reconciled 06/21/25 by Silvia Naik PA-C amlodipine 5 mg PO DAILY atorvastatin 10 mg PO DAILY cetirizine (All Day Allergy (cetirizine)) 10 mg PO DAILY fluticasone propionate 50 mcg/actuation 1 spray intranasal DAILY hydrocortisone 1% 1 appl topical TID PRN metoprolol succinate ER 50 mg PO DAILY Tobacco use date assessed: 06/21/25 Dental Screening Dental Screen Date: 06/21/25 Did you have a dental visit in the last 12 months?: Yes Did you have a dental problem in the last 6 months where you did not have access to dental care?: No Was dental information given to patient?: Patient has dentist HPI Reschedule FU BP HPI Details 45-year-old male with past medical histo ry of diabetes mellitus, hypercholesterolemia, hypertension last seen 03/21 coming in for follow up. Presenting with hypertension management. The patient is on metoprolol 50 mg and amlodipine 5 mg, with inconsistent home monitoring of blood pressure. In-office blood pressure was 140/80 mmHg, indicating suboptimal control. The patient has been off atorvastatin for a month, with plans to resume and recheck cholesterol levels. Patient has complaints of leg swelling which has been ongoing for several months now potentially linked to amlodipine and/or working long hours a nd prolonged standing. 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 1. Little interest or pleasure in doing things: not at all 2. Feeling down, depressed, or hopeless: not at all 3. Trouble falling or staying asleep, or sleeping too much: not at all 4. Feeling tired or having little energy: not at all 5. Poor appetite or overeating: not at all 6. Feeling bad about yourself - or that you are a failure or have let yourself or your family down: not at all 7. Trouble concentrating on things, such as reading the newspaper or watching television: not at all 8. Moving or speaking so slowly that other people could have noticed. Or the opposite - being so fidgety or restless that you have been moving around a lot more than usual: not at all 9. Thoughts that you would be better off or of hurting yourself in some way: not at all Total score: 0 Depression Screening Interpretation: Negative Depression Screening Done: Yes Source: Developed by Drs. Lance Horton, Jumana Manning, Son Quach and colleagues, with an educational shruthi from [employer]. Thrive Questionnaire Date Thrive assessed: 12/18/24 I am a: Patient What is your living situation today?: I have a steady place to live Within the past 12 months, did the food you bought not last and you didn't have the money to get more?: Often true Within the past 12 months, did you worry whether your food would run out before you got money to buy more?: I choose not to answer this question Do you have trouble paying for medicines?: No Do you have trouble getting transportation to medical appointments?: No Do you have trouble paying your heating and electricity bill?: No Do you have trouble taking care of your child, family member or friend?: No Do you have trouble with day-to-day activities such as bathing, preparing meals, shopping, managing finances, etc.?: No Are you currently unemployed and looking for a job?: No Are you interested in more education?: I choose not to answer this question Please select the resources that you would like help with: None Currently or been in a relationship where the following occur: I choose not to answer THRIVE Score: 1 AUDIT C Alcohol Use Questionnaire (AUDIT-C) 1. How often do you have a drink containing alcohol?: Never Total Score: 0 VIRGEN-7 AMB Questionnaire VIRGEN-7 Date VIRGEN - 7 assessed: 12/18/24 Feeling nervous, anxious, or on edge: 0 = Not at all Not being able to stop or control worryin = Not at all Worrying too much about different things: 0 = Not at all Trouble relaxin = Several days Being so restless that it is hard to sit still: 0 = Not at all Becoming easily annoyed or irritable: 1 = Several days Feeling afraid as if something awful might happen: 0 = Not at all Total VIRGEN-7 score (0-4 normal; 5-9 mild; 10-14 moderate; 15-21 severe): 2 Source: Developed by Drs. Lance Horton, Jumana Manning, Son Quach and colleagues, with an educational shruthi from [employer]. VIRGEN-7 Assessment Billing VIRGEN-7 Assessment Tool: VIRGEN-7 Assessment 40697 Review of Systems Const Denies body aches, Denies chills, Denies fever(s), Denies headache(s) and Denies poor appetite Eyes Reports no additional complaints ENT Denies dysphagia, Denies dizziness, Denies headache(s) and Denies odynophagia Card Denies chest pain, Denies syncope, Denies edema, Denies irregular heart rhythm, Denies lightheadedness and Denies dyspnea Resp Denies cough and Denies dyspnea GI Denies abdominal pain, Denies constipation, Denies dysphagia, Denies diarrhea, Denies nausea, Denies odynophagia and Denies vomiting Reports no additional complaints Musc Reports no additional complaints and Denies abnormal gait Skin/Breast Reports system reviewed and no additional complaints, except as documented Neuro Denies abnormal gait, Denies dizziness, Denies syncope and Denies headache(s) Psych Reports no additional complaints Physical exam (Primary Care) Vital Signs: Last Vital Signs Pulse 77 06/21/25 14:58 BP 140/80 H 06/21/25 14:58 Pulse Ox 96 06/21/25 14:29 BMI result Body Mass Index 41.6 Tobacco/Smoking Status: Tobacco use Status Tobacco use date assessed 06/21/25 06/21/25 14:35 Patient Tobacco Use Status Never used Tobacco 06/21/25 14:35 e-Cigarette/Vaping Use Never Used 06/21/25 14:35 PHQ-9: PHQ-9 Score PHQ-9: Total score 0 06/21/25 14:48 Depression Screening Interpretation: Negative Thrive Assessment: Date of Thrive Assessment Date Thrive assessed 12/18/24 06/21/25 14:35 Currently or been in a relationship where the following occur: I choose not to answer Const General: cooperative, healthy appearing, comfortable and no acute distress Orientation/consciousness: patient oriented x3 HENMT Head: Yes normocephalic Ears: hearing grossly normal bilaterally General nose exam: Normal external nose present Eyes General: appearance normal, both eyes and all related structures Conjunctivae: conjunctivae normal Neck Neck: Yes full ROM and Yes no lymphadenopathy Resp Effort & Inspection: normal respiratory effort Auscultation: clear to auscultation bilaterally, no crackles, no rales, no rhonchi and no wheezes Cardio Rate: regular rate Rhythm: regular rhythm Skin General skin exam: no rashes or lesions noted Neuro General: patient oriented x3 Gait exam (Neuro): Normal gait present Extrem General: Yes normal to inspection, Yes full ROM and No edema Psych Affect: normal affect Attitude: cooperative Insight: Good insight present (Psych) Judgement: Good judgement present (Psych) Coding Level of Care Code Est Pt Level 4 (24104) Diagnoses Hypertension I10 Obesity E66.9 Hypercholesterolemia E78.00 Diabetes mellitus E11.9 Leg swelling M79.89 Additional Codes VIRGEN-7 Assessment Billing - VIRGEN-7 Assessment Tool: VIRGEN-7 Assessment 92608 ([id number]) Assessment & Plan Assessment & Plan (1) Hypertension: Code(s): I10 - Essential (primary) hypertension Category: Medical Plan: The patient's blood pressure remains elevated at 140/80 mmHg despite current medication regimen of metoprolol and amlodipine. Consideration was given to increasing amlodipine, but due to associated leg swelling, alternative antihypertensive medications may be explored. He is declining an increase in medication at this time. The patient is advised to monitor blood pressure at h ome 2-3 times a week and report any readings above 140/90 mmHg. Reviewed red flag symptoms and when to present for re evaluation. (2) Obesity: Code(s): E66.9 - Obesity, unspecified Category: Medical Plan: Healthy diet and regular exercise is encouraged. (3) Hypercholesterolemia: Code(s): E78.00 - Pure hypercholesterolemia, unspecified Category: Medical Plan: Avoid foods that are high in cholesterol such as red meat, fried foods, eggs and baked goods. Triglyceride goal of less than 150 and LDL goal of less than 70. HE has been out of the Atorvastatin for the last several weeks. Refill was sent and plan to repeat blood work once Atorvastatin has been resumed. (4) Diabetes mellitus: Code(s): E11.9 - Type 2 diabetes mellitus without complications Category: Medical Plan: Decrease the amount of carbohydrates such as pasta, bread, rice, and potatoes and limit the amount of sweets. Although fruits are generally healthy they should be eaten in moderation as they are still high in sugar. Hemoglobin A1c goal of less than 7%. A1c 6.7% today medication not indicated plan to continue to work on dietary and lifestyle modification. (5) Leg swelling: Code(s): M79.89 - Other specified soft tissue disorders Category: Medical Plan: The leg swelling is suspected to be related to amlodipine use or prolonged standing at work. The patient is advised to consider wearing compression stocki ngs and elevating legs after work to alleviate symptoms. Medications: Refilled atorvastatin 10 mg PO DAILY 90 tabs 1RF amlodipine 5 mg PO DAILY 90 tabs 1RF
[2025-06-21 14:58] VITALS: BP 140/80; PULSE 77
== END 2025-06-21 15:17 | disposition home or self-care (01) ==
LOC: HO.HMCH 14:19
DX: E11.9 Type 2 diabetes mellitus without complications (principal); E66.9 Obesity, unspecified; Z68.41 Body mass index [BMI] 40.0-44.9, adult; I10 Essential (primary) hypertension; E78.00 Pure hypercholesterolemia, unspecified; M79.89 Other specified soft tissue disorders

== ENCOUNTER → 2025-06-21 14:19 | Outpatient (BNVA) | payer OTHER, SELFPAY | DX: E11.9 Type 2 diabetes mellitus without complications (principal); E78.00 Pure hypercholesterolemia, unspecified; I10 Essential (primary) hypertension; E66.9 Obesity, unspecified; M79.89 Other specified soft tissue disorders; Z79.899 Other long term (current) drug therapy; Z68.41 Body mass index [BMI] 40.0-44.9, adult | CPT/HCPCS: 96127 ==